=== PATIENT | male | born 1995 | race Caucasian/White ===

== ENCOUNTER 2017-07-10 21:58 | Emergency (ER) | payer OTHER ==
[~2017-07-10] VITALS: Ht 185.4 cm; Wt 83.7 kg
[2017-07-10 22:03] VITALS: BP 124/82
[2017-07-10] MEDS ORDERED: LIDOCAINE 1%, 20ML ONE (22:28)
[2017-07-10] MEDS ORDERED: LIDOCAINE 1%, 10ML INFIL ONE (22:30)
== END 2017-07-10 23:18 | disposition home or self-care (01) ==
LOC: ED 22:55
DX: L02.414 Cutaneous abscess of left upper limb (principal)
CPT/HCPCS: 99283

== ENCOUNTER 2017-07-11 21:17 | Emergency (ER) | payer OTHER ==
[~2017-07-11] VITALS: Ht 185.4 cm; Wt 83.0 kg
[2017-07-11 21:28] VITALS: BP 152/97
[2017-07-11] MEDS ORDERED: SULFAMETH./TRIMETHOPRIM DS 800MG/160MG TABLET ONE (22:53)
[2017-07-11] MEDS ORDERED: LIDOCAINE 1%, 20ML ONE (22:53)
[2017-07-11] MEDS ORDERED: CEFTRIAXONE 1,000 MG ONE (22:53)
[2017-07-11] MEDS ORDERED: SULFAMETH./TRIMETHOPRIM DS 800MG/160MG TABLET PO ONE (23:00)
[2017-07-11] MEDS ORDERED: CEFTRIAXONE 1,000 MG IM ONE (23:00)
== END 2017-07-11 23:14 | disposition home or self-care (01) ==
LOC: ED 23:00
DX: L03.114 Cellulitis of left upper limb (principal); J45.909 Unspecified asthma, uncomplicated
CPT/HCPCS: 96372; 99283; J0696

== ENCOUNTER 2017-07-13 20:39 | Emergency (ER) | payer SELFPAY ==
[~2017-07-13] VITALS: Ht 185.4 cm; Wt 79.6 kg
[2017-07-13 20:40] VITALS: BP 128/87
== END 2017-07-13 21:49 | disposition home or self-care (01) ==
LOC: ED 21:40
DX: L03.114 Cellulitis of left upper limb (principal)
CPT/HCPCS: 99283

== ENCOUNTER 2017-07-15 20:50 | Emergency (ER) | payer SELFPAY ==
[~2017-07-15] VITALS: Ht 185.4 cm; Wt 82.8 kg
[2017-07-15 20:52] VITALS: BP 128/79
== END 2017-07-15 21:19 | disposition home or self-care (01) ==
LOC: ED 21:13
DX: L03.114 Cellulitis of left upper limb (principal); J45.909 Unspecified asthma, uncomplicated; F19.10 Other psychoactive substance abuse, uncomplicated; Z96.22 Myringotomy tube(s) status; Z98.890 Other specified postprocedural states
CPT/HCPCS: 99282